=== PATIENT | female | born 1980 | race Caucasian/White ===

== ENCOUNTER 2019-08-10 09:51 | Observation (INO) ==
[2019-08-10 11:01] LABS: Basophils % 0.5 %; Eosinophils # 0.1 K/mcL (0.0-0.6); Eosinophils % 0.8 %; Hematocrit 45.2 % (35.3-44.9); Immature Granulocytes % 0.6 % (0-4); Lymphocytes # 1.2 K/mcL (0.6-4.6); Lymphocytes % 19.8 %; Mean Corpuscular HGB Conc 33.2 g/dL (31.6-35.5); Mean Corpuscular Hemoglobin 32.3 pg (28.0-33.3); Mean Corpuscular Volume 97.2 fL (83.0-100.0); Mean Platelet Volume 9.6 fL (9.4-12.4); Monocytes # 0.3 K/mcL (0.0-1.3); Monocytes % 4.7 %; Neutrophils # 4.6 K/mcL (1.6-8.9); Platelet Count 241 K/mcL (140-400); Red Blood Count 4.65 M/mcL (3.82-4.97); Red Cell Distribution Width 13.2 % (11.5-14.5); Segmented Neutrophils % 73.6 %; White Blood Count 6.2 K/mcL (4.3-11.1)
[2019-08-10] MEDS ORDERED: *HR* LORazepam 1 MG TABLET PO ONE ×2 (11:02→13:12)
[2019-08-10] MEDS ORDERED: *HR* LORazepam 2 MG/ML VIAL IVP ONE (11:07)
[2019-08-10 11:22] LABS: Alanine Aminotransferase 19 Units/L (7-52); Albumin 4.4 g/dL (3.5-5.7); Albumin/Globulin Ratio 1.5 (1.1-2.2); Alkaline Phosphatase 66 Units/L (34-104); Aspartate Amino Transferase 14 Units/L (13-39); BUN/Creatinine Ratio 16 (6-26); Bilirubin,Total 0.3 mg/dL (0.3-1.0); Blood Urea Nitrogen 13 mg/dL (6-20); Calcium 9.8 mg/dL (8.6-10.3); Carbon Dioxide 23 mEq/L (23-29); Chloride 106 mEq/L (98-107); Glucose 112 mg/dL (70-105); Lipase 16 Units/L (11-82); Osmolality,Calculated 287 (280-300); Sodium 138 mEq/L (136-145); Total Protein 7.4 g/dL (6.4-8.9); eGFR For African Americans > 60 (> 60); eGFR For Non-African Americans > 60 (> 60)
[2019-08-10 11:36] LABS: Ethanol < 10 mg/dL (Less than 10)
[2019-08-10 11:45] LABS: Bilirubin,Urine Negative (Negative); Blood,Urine Large (Negative); Clarity,Urine Cloudy (Clear); Glucose,Urine (UA) Normal (Normal); Ketones,Urine Negative (Negative); Leukocyte Esterase,Urine Negative (Negative); Nitrite,Urine Negative (Negative); PH,Urine 6.5 pH Units (5.0-8.0); Protein,Urine Negative (Neg-Trace); Specific Gravity,Urine 1.016 (1.010-1.025); Urobilinogen,Urine Normal (Normal)
[2019-08-10 11:48] LABS: Bacteria,Urine None Seen per hpf (None-Few); Hyaline Casts,Urine None Seen per lpf (None-Few); RBC,Urine TNTC per hpf (0-3); Squamous Epithelial Cell,Urine Moderate per lpf (None-Few); WBC,Urine 0-3 per hpf (0-3)
[2019-08-10 11:49] LABS: Amphetamine Screen,Urine Negative ng/mL (Cutoff=1000); Barbiturate Screen,Urine Negative ng/mL (Cutoff=200); Benzodiazepines Screen,Urine Negative ng/mL (Cutoff=200); Cannabinoid Screen,Urine Negative ng/mL (Cutoff = 50); Cocaine Screen,Urine Negative ng/mL (Cutoff= 300); Opiate Screen,Urine Negative ng/mL (Cutoff=300); Phencyclidine Screen,Urine Negative ng/mL (Cutoff=25)
[2019-08-10 11:57] LABS: Color,Urine Pink (Yellow)
[2019-08-10] MEDS ORDERED: Naloxone 0.4 MG/ML INJ IVP PRN (14:30)
[2019-08-10] MEDS ORDERED: Ondansetron 4 MG/2 ML VIAL IVP PRN (14:30)
[2019-08-10] MEDS ORDERED: *HR* LORazepam 2 MG/ML VIAL IVP PRN (14:33)
[2019-08-10] MEDS ORDERED: Gadolinium Contrast Agent (WT Based) IV PRN (15:01)
[2019-08-10] MEDS ORDERED: Ketorolac 15 MG/ML VIAL IVP PRN (15:09)
[2019-08-10] MEDS ORDERED: Acetaminophen 325 MG TABLET PO PRN (15:09)
[2019-08-10] MEDS: 0.9 % Sodium Chloride 1,000 ML IVC SCH (16:09)
[2019-08-11] MEDS: 0.9 % Sodium Chloride 1,000 ML IVC SCH (02:50)
[2019-08-11] MEDS ORDERED: *HR* LORazepam 2 MG/ML VIAL IVP ONE (04:25)
[2019-08-11] MEDS ORDERED: Levothyroxine 25 MCG TABLET PO SCH (08:20)
[2019-08-11] MEDS ORDERED: Topiramate 25 MG TABLET PO SCH (09:00)
[2019-08-11 11:16] VITALS: BP 126/83
[2019-08-11 11:59] LABS: Thyroid Stimulating Hormone 2.618 mcIU/mL (0.340-5.600)
== END 2019-08-11 13:39 | disposition home or self-care (01) ==
LOC: 3BNU 09:51 → EMEROOARM 09:51 → SUATTDRO 15:44 → 3BNU 18:40
PROVIDERS: ADMIT Internal Medicine; ATTEND Internal Medicine

== ENCOUNTER 2019-10-26 15:49 | Inpatient (IN) ==
[2019-10-26 16:29] LABS: Basophils % 0.3 %; Eosinophils # 0.1 K/mcL (0.0-0.6); Eosinophils % 0.6 %; Hematocrit 41.9 % (35.3-44.9); Immature Granulocytes % 0.8 % (0-4); Lymphocytes # 1.6 K/mcL (0.6-4.6); Lymphocytes % 18.6 %; Mean Corpuscular HGB Conc 33.4 g/dL (31.6-35.5); Mean Corpuscular Volume 95.9 fL (83.0-100.0); Mean Platelet Volume 9.3 fL (9.4-12.4); Monocytes # 0.4 K/mcL (0.0-1.3); Monocytes % 4.9 %; Neutrophils # 6.6 K/mcL (1.6-8.9); Platelet Count 237 K/mcL (140-400); Red Blood Count 4.37 M/mcL (3.82-4.97); Segmented Neutrophils % 74.8 %; White Blood Count 8.8 K/mcL (4.3-11.1)
[2019-10-26 16:30] LABS: Bilirubin,Urine Negative (Negative); Blood,Urine Negative (Negative); Clarity,Urine Clear (Clear); Color,Urine Yellow (Yellow); Glucose,Urine (UA) Normal (Normal); Ketones,Urine Negative (Negative); Leukocyte Esterase,Urine Trace (Negative); Nitrite,Urine Negative (Negative); Protein,Urine Negative (Neg-Trace); Specific Gravity,Urine 1.018 (1.010-1.025); Urobilinogen,Urine Normal (Normal)
[2019-10-26 16:33] LABS: Bacteria,Urine Few per hpf (None-Few); Hyaline Casts,Urine None Seen per lpf (None-Few); Squamous Epithelial Cell,Urine Many per lpf (None-Few)
[2019-10-26 16:43] LABS: Amphetamine Screen,Urine Negative ng/mL (Cutoff=1000); Barbiturate Screen,Urine Negative ng/mL (Cutoff=200); Benzodiazepines Screen,Urine Negative ng/mL (Cutoff=200); Cannabinoid Screen,Urine Negative ng/mL (Cutoff = 50); Cocaine Screen,Urine Negative ng/mL (Cutoff= 300); Opiate Screen,Urine Negative ng/mL (Cutoff=300); Phencyclidine Screen,Urine Negative ng/mL (Cutoff=25)
[2019-10-26 16:47] LABS: WBC,Urine 0-3 per hpf (0-3)
[2019-10-26 16:52] LABS: Acetaminophen < 10 mcg/mL (10-20); Alanine Aminotransferase 26 Units/L (7-52); Albumin 4.5 g/dL (3.5-5.7); Albumin/Globulin Ratio 1.6 (1.1-2.2); Alkaline Phosphatase 68 Units/L (34-104); Aspartate Amino Transferase 19 Units/L (13-39); BUN/Creatinine Ratio 16 (6-26); Bilirubin,Direct 0.1 mg/dL (0.0-0.2); Bilirubin,Indirect 0.3 mg/dL (0.0-1.0); Bilirubin,Total 0.4 mg/dL (0.3-1.0); Blood Urea Nitrogen 13 mg/dL (6-20); Calcium 9.9 mg/dL (8.6-10.3); Carbon Dioxide 21 mEq/L (23-29); Chloride 105 mEq/L (98-107); Ethanol < 10 mg/dL (Less than 10); Globulin 2.9 g/dL (2.4-3.5); Glucose 155 mg/dL (70-105); Osmolality,Calculated 287 (280-300); Potassium 3.5 mEq/L (3.5-5.1); Salicylate < 2.5 mg/dL (15.0-30.0); Sodium 137 mEq/L (136-145); Total Protein 7.4 g/dL (6.4-8.9); eGFR For African Americans > 60 (> 60); eGFR For Non-African Americans > 60 (> 60)
[2019-10-26 17:04] LABS: Thyroid Stimulating Hormone 2.416 mcIU/mL (0.340-5.600)
[2019-10-26] MEDS ORDERED: *HR* LORazepam 1 MG TABLET PO PRN (18:15)
[2019-10-26] MEDS ORDERED: Haloperidol Lactate 5 MG/ML VIAL IM PRN (18:15)
[2019-10-26] MEDS ORDERED: Mag Hydrox/Al Hydrox/Simeth 30 ML UDC PO PRN (18:15)
[2019-10-26] MEDS ORDERED: traZODone 50 MG TABLET PO PRN (18:15)
[2019-10-26] MEDS ORDERED: Acetaminophen 325 MG TABLET PO PRN (18:15)
[2019-10-26] MEDS ORDERED: MOM Conc 10 ML UD.LIQ PO PRN (18:15)
[2019-10-26] MEDS ORDERED: haloperidoL 5 MG TABLET PO PRN (18:15)
[2019-10-26] MEDS: Topiramate 100 MG TABLET PO SCH (20:13)
[2019-10-26] MEDS: hydrOXYzine pamoate 25 MG CAPSULE PO PRN (20:13)
[2019-10-26] MEDS ORDERED: QUEtiapine Fumarate 25 MG TABLET PO PRN (20:14)
[2019-10-26] MEDS: risperiDONE 1 MG TABLET PO SCH (20:15)
[2019-10-27] MEDS: Levothyroxine 25 MCG TABLET PO SCH (06:06)
[2019-10-27] MEDS: risperiDONE 1 MG TABLET PO SCH ×2 (09:45→20:03)
[2019-10-27] MEDS: Topiramate 100 MG TABLET PO SCH ×2 (09:45→20:03)
[2019-10-27] MEDS: hydrOXYzine pamoate 25 MG CAPSULE PO PRN ×2 (11:28→20:03)
[2019-10-28] MEDS: Levothyroxine 25 MCG TABLET PO SCH (07:01)
[2019-10-28 08:38] VITALS: BP 117/78
[2019-10-28] MEDS: risperiDONE 1 MG TABLET PO SCH (08:53)
[2019-10-28] MEDS: Topiramate 100 MG TABLET PO SCH (08:53)
[2019-10-28] MEDS: hydrOXYzine pamoate 25 MG CAPSULE PO PRN (08:55)
== END 2019-10-28 10:20 | disposition home or self-care (01) | DRG 885 ==
LOC: 1ANU 15:49 → EMEROOARM 15:49 → 1ANU 18:25
PROVIDERS: ADMIT Psychiatry & Neurology Psychiatry; ATTEND Psychiatry & Neurology Psychiatry